=== PATIENT | male | born 1940 | race Caucasian/White ===

== ENCOUNTER → 2018-02-04 | Outpatient (CLI) | payer MEDICARE, SELFPAY ==
[~2018-02-04] MED LIST: ASCO500 PO; Acetaminophen325 M1 PO; Actos45 MG PO; Advair Hfa 230-12 GM; BUSP10 PO; BUSP5 PO; CEFP200 PO; CEFU500T30 PO; CHLO25A PO; CODACE30 PO; CRANBERRY250 MG PO; Cinnamon500 MG PO; Cipro500 MG PO; Colace100 MG PO; DONE10 PO; DONE5 PO; ERGO400 PO; FISH OIL 1,0001 EAC1 PO; FISH OIL 1,0001 EAC2 PO; FLUC150A PO; GABA300 PO; HYDR1TAB94 PO; HYOS.125 SL; Humalog100 UNIT/1 SC; INSDET100 SC; INSULANPEN SC; IRBE150 PO; IRBE75 PO; Keflex500 MG PO; LISI20 PO; LORA.5 PO; LORA1 PO; LOVA20 PO; LOVA40; LOVA40 PO; MAGCHL64ER PO; MELO7.5 PO; MEMA10 PO; MEMA5TAB PO; Novolog Fl100 UNIT/1 SC; OMEPRAZOLE MAGN20 MG PO; Omeprazole20 M1 PO; Percocet 5-3251 EACH PO; QUET25 PO; RISP.5 PO; RISP1 PO; SACC250C PO; TAMS.4ER PO; Zofran Odt4 MG SL
[2018-02-04 18:35] LABS: BASOPHILS ABSOLUTE AUTO 0.03 K/mm3 (0.00-0.23); BASOPHILS PERCENT AUTO 0 % (0-2); EOSINOPHILS ABSOLUTE AUTO 0.12 K/mm3 (0.00-0.68); EOSINOPHILS PERCENT AUTO 2 % (0-6); Hematocrit 40.4 % (37.0-53.0); Hemoglobin 13.4 g/dL (13.5-17.5); IMMATURE GRAN ABSOLUTE AUTO 0.02 K/mm3 (0.00-0.10); IMMATURE GRAN PERCENT AUTO 0 % (0-1); LYMPHOCYTES ABSOLUTE AUTO 2.62 K/mm3 (0.84-5.20); LYMPHOCYTES PERCENT AUTO 35 % (21-46); MONOCYTES ABSOLUTE AUTO 0.46 K/mm3 (0.16-1.47); MONOCYTES PERCENT AUTO 6 % (4-13); Mean Corpuscular HGB 29.8 pg (26.0-34.0); Mean Corpuscular HGB Conc 33.2 g/dL (31.5-36.5); Mean Corpuscular Volume 90 fL (80-100); Mean Platelet Volume 9.6 fL (9.1-12.4); NEUTROPHILS ABSOLUTE AUTO 4.21 K/mm3 (1.96-9.15); NEUTROPHILS PERCENT AUTO 56 % (41-73); Platelet Count 222 K/mm3 (150-400); RDW Coefficient Variation 12.5 % (11.7-14.2); Red Blood Cell Count 4.49 M/mm3 (4.30-5.90); White Blood Cell Count 7.46 K/mm3 (4.00-11.30)
[2018-02-04 18:49] LABS: Alanine Aminotransfer (ALT/SGP 27 U/L (12-78); Albumin, Blood 3.7 g/dL (3.4-5.0); Albumin/Globulin Ratio 1.3 (0.8-1.8); Alk Phos 81 U/L (50-136); Anion Gap 6 mmol/L (6-16); Aspartate Aminotrans (AST/SGOT 16 U/L (12-37); Bilirubin, Total 0.7 mg/dL (0.1-1.0); Blood Urea Nitrogen 14 mg/dL (8-24); CO2, Blood 31 mmol/L (21-32); Calcium, Blood 8.5 mg/dL (8.5-10.1); Chloride, Blood 104 mmol/L (98-108); Creatinine, Blood 0.74 mg/dL (0.60-1.20); Globulin, Blood 2.9 g/dL (2.2-4.0); Glomerular Filtration Rate >60 (60-); Glucose, Blood 354 mg/dL (70-99); Potassium, Blood 4.2 mmol/L (3.5-5.5); Sodium, Blood 141 mmol/L (136-145); Total Protein, Blood 6.6 g/dL (6.4-8.2)
== END | disposition home or self-care (01) ==
LOC: LAB SHORT 17:15 → LAB 17:15
PROVIDERS: Nurse Practitioner
DX: R10.11 Right upper quadrant pain (principal)
CPT/HCPCS: 80053; 83690; 85025

== ENCOUNTER 2018-03-30 15:28 | Emergency (ER) | payer MEDICARE ==
[~2018-03-30] VITALS: Ht 182.9 cm; Wt 90.7 kg
[~2018-03-30 15:28] MED LIST changes: -Acetaminophen325 M1 PO; -Advair Hfa 230-12 GM; -BUSP10 PO; -BUSP5 PO; -CEFP200 PO; -CHLO25A PO; -DONE10 PO; -FISH OIL 1,0001 EAC2 PO; -GABA300 PO; -HYDR1TAB94 PO; -HYOS.125 SL; -Humalog100 UNIT/1 SC; -INSDET100 SC; -IRBE150 PO; -LORA.5 PO; -LORA1 PO; -LOVA40; -MEMA10 PO; -Omeprazole20 M1 PO; -QUET25 PO; -RISP.5 PO; -RISP1 PO; -SACC250C PO
[2018-03-30] MEDS ORDERED: GABA300 PO (16:00)
[2018-03-30] MEDS ORDERED: TAMS.4ER PO (16:00)
[2018-03-30] MEDS ORDERED: Omeprazole20 M1 PO (16:00)
[2018-03-30] MEDS ORDERED: LOVA40 PO (16:01)
[2018-03-30] MEDS ORDERED: MEMA10 (16:01)
[2018-03-30] MEDS ORDERED: DONE10 PO (16:01)
[2018-03-30] MEDS ORDERED: IRBE150 PO (16:01)
[2018-03-30] MEDS ORDERED: MELO7.5 PO (16:02)
[2018-03-30] MEDS ORDERED: BUSP5 PO (16:02)
[2018-03-30] MEDS ORDERED: HYOS.125 SL (16:02)
[2018-03-30] MEDS ORDERED: HYDR1TAB94 PO (16:03)
[2018-03-30] MEDS ORDERED: FISH OIL 1,0001 EAC2 PO (16:03)
[2018-03-30] MEDS ORDERED: CRANBERRY250 MG PO (16:03)
== END 2018-03-30 17:15 | disposition home or self-care (01) ==
LOC: ER 15:28
DX: R10.11 Right upper quadrant pain (principal); Z88.2 Allergy status to sulfonamides; Z88.5 Allergy status to narcotic agent; Z79.899 Other long term (current) drug therapy; Z79.4 Long term (current) use of insulin; E11.9 Type 2 diabetes mellitus without complications; I10 Essential (primary) hypertension; E78.00 Pure hypercholesterolemia, unspecified; G30.9 Alzheimer's disease, unspecified

== ENCOUNTER 2018-04-06 07:15 | Day surgery (SDC) | payer MEDICARE ==
[~2018-04-06] VITALS: Ht 177.8 cm; Wt 91.1 kg
[~2018-04-06 07:15] MED LIST changes: +BUSP5 PO; +DONE10 PO; +FISH OIL 1,0001 EAC2 PO; +GABA300 PO; +HYDR1TAB94 PO; +HYOS.125 SL; +IRBE150 PO; +MEMA10; +Omeprazole20 M1 PO
[2018-04-11] MEDS ORDERED: Omeprazole20 M1 PO (17:18)
== END 2018-04-06 09:29 | disposition home or self-care (01) ==
LOC: ORSCSDS 07:15
PROVIDERS: Internal Medicine Gastroenterology
PROC: 0D758ZZ Dilation of Esophagus, Via Natural or Artificial Opening Endoscopic (ICD-10-PCS; principal; 2018-04-06 08:30)
PROC: 0DB68ZX Excision of Stomach, Via Natural or Artificial Opening Endoscopic, Diagnostic (ICD-10-PCS; principal; 2018-04-06 08:30)
DX: R10.11 Right upper quadrant pain (principal); R13.10 Dysphagia, unspecified; R11.0 Nausea; E78.5 Hyperlipidemia, unspecified; K21.9 Gastro-esophageal reflux disease without esophagitis; Z85.05 Personal history of malignant neoplasm of liver; R63.4 Abnormal weight loss; E11.9 Type 2 diabetes mellitus without complications; I10 Essential (primary) hypertension; Z79.4 Long term (current) use of insulin; K58.9 Irritable bowel syndrome, unspecified; Z79.899 Other long term (current) drug therapy
CPT/HCPCS: 82947; 88305; 88342; J7120

== ENCOUNTER 2018-04-11 14:30 | Inpatient (IN) | payer MEDICARE ==
[~2018-04-11] VITALS: Ht 182.9 cm; Wt 89.6 kg
[~2018-04-11 14:30] MED LIST changes: -IRBE150 PO; -MEMA10; +MEMA10 PO
[2018-04-11 14:56] LABS: Source, Urine Catheter
[2018-04-11 15:16] LABS: Bilirubin, Urine Neg (Neg); Blood, Urine 2+ (Neg); Glucose Qualitative, Urine 4+ (Neg); Ketones, Urine Neg (Neg); Leukocyte Esterase, Urine 3+ (Neg); Nitrite, Urine Pos (Neg); Protein, Urine 2+ (Neg); Urobilinogen, Urine NORM (Normal)
[2018-04-11 15:30] LABS: Appearance, Urine Hazy (Clear); Color, Urine Yellow (P-Yellow)
[2018-04-11 15:31] LABS: BASOPHILS ABSOLUTE AUTO 0.02 K/mm3 (0.00-0.23); BASOPHILS PERCENT AUTO 0 % (0-2); EOSINOPHILS ABSOLUTE AUTO 0.04 K/mm3 (0.00-0.68); EOSINOPHILS PERCENT AUTO 0 % (0-6); Hematocrit 38.1 % (37.0-53.0); Hemoglobin 12.5 g/dL (13.5-17.5); IMMATURE GRAN ABSOLUTE AUTO 0.04 K/mm3 (0.00-0.10); IMMATURE GRAN PERCENT AUTO 0 % (0-1); LYMPHOCYTES ABSOLUTE AUTO 0.69 K/mm3 (0.84-5.20); LYMPHOCYTES PERCENT AUTO 7 % (21-46); MONOCYTES ABSOLUTE AUTO 0.56 K/mm3 (0.16-1.47); MONOCYTES PERCENT AUTO 5 % (4-13); Mean Corpuscular HGB 29.8 pg (26.0-34.0); Mean Corpuscular HGB Conc 32.8 g/dL (31.5-36.5); Mean Corpuscular Volume 91 fL (80-100); Mean Platelet Volume 9.2 fL (9.1-12.4); NEUTROPHILS ABSOLUTE AUTO 9.16 K/mm3 (1.96-9.15); NEUTROPHILS PERCENT AUTO 87 % (41-73); Platelet Count 167 K/mm3 (150-400); RDW Coefficient Variation 12.9 % (11.7-14.2); RDW Standard Deviation 42.5 fL (35.1-46.3); Red Blood Cell Count 4.19 M/mm3 (4.30-5.90); White Blood Cell Count 10.51 K/mm3 (4.00-11.30)
[2018-04-11 15:31] LABS: White Blood Cells, Urine TNTC /hpf (0-5)
[2018-04-11 15:32] LABS: Bacteria Many /hpf; Renal Epithelial Few /hpf (0-Rare); Squamous Epithelial Cells Not Seen /hpf (Few)
[2018-04-11 15:45] LABS: International Normalized Ratio 1.09; Prothrombin Time Results 11.4 Sec (9.7-11.5)
[2018-04-11 15:50] LABS: Alanine Aminotransfer (ALT/SGP 24 U/L (12-78); Albumin, Blood 3.1 g/dL (3.4-5.0); Albumin/Globulin Ratio 1.1 (0.8-1.8); Alk Phos 74 U/L (50-136); Anion Gap 9 mmol/L (6-16); Aspartate Aminotrans (AST/SGOT 21 U/L (12-37); Bilirubin, Total 0.9 mg/dL (0.1-1.0); Blood Urea Nitrogen 17 mg/dL (8-24); Bun/Creatinine Ratio 21.4 (12.0-20.0); CO2, Blood 24 mmol/L (21-32); Chloride, Blood 107 mmol/L (98-108); Creatinine, Blood 0.79 mg/dL (0.60-1.20); Globulin, Blood 2.9 g/dL (2.2-4.0); Glomerular Filtration Rate >60 (60-); Glucose, Blood 328 mg/dL (70-99); Sodium, Blood 140 mmol/L (136-145)
[2018-04-11] MEDS ORDERED: BUSP10 PO (17:17)
[2018-04-11] MEDS ORDERED: LOVA40 (17:21)
[2018-04-11] MEDS ORDERED: LOVA40 PO (17:28)
[2018-04-12 05:32] LABS: BASOPHILS ABSOLUTE AUTO 0.02 K/mm3 (0.00-0.23); BASOPHILS PERCENT AUTO 0 % (0-2); EOSINOPHILS ABSOLUTE AUTO 0.06 K/mm3 (0.00-0.68); EOSINOPHILS PERCENT AUTO 1 % (0-6); Hemoglobin 12.1 g/dL (13.5-17.5); IMMATURE GRAN ABSOLUTE AUTO 0.05 K/mm3 (0.00-0.10); IMMATURE GRAN PERCENT AUTO 0 % (0-1); LYMPHOCYTES ABSOLUTE AUTO 2.54 K/mm3 (0.84-5.20); LYMPHOCYTES PERCENT AUTO 20 % (21-46); MONOCYTES PERCENT AUTO 10 % (4-13); Mean Corpuscular HGB 29.8 pg (26.0-34.0); Mean Corpuscular HGB Conc 32.7 g/dL (31.5-36.5); Mean Corpuscular Volume 91 fL (80-100); Mean Platelet Volume 9.3 fL (9.1-12.4); NEUTROPHILS ABSOLUTE AUTO 8.56 K/mm3 (1.96-9.15); NEUTROPHILS PERCENT AUTO 68 % (41-73); Platelet Count 157 K/mm3 (150-400); RDW Coefficient Variation 12.9 % (11.7-14.2); RDW Standard Deviation 42.9 fL (35.1-46.3); Red Blood Cell Count 4.06 M/mm3 (4.30-5.90); White Blood Cell Count 12.53 K/mm3 (4.00-11.30)
[2018-04-12 05:53] LABS: Anion Gap 7 mmol/L (6-16); Blood Urea Nitrogen 13 mg/dL (8-24); Bun/Creatinine Ratio 16.6 (12.0-20.0); CO2, Blood 26 mmol/L (21-32); Chloride, Blood 109 mmol/L (98-108); Creatinine, Blood 0.79 mg/dL (0.60-1.20); Glomerular Filtration Rate >60 (60-); Glucose, Blood 94 mg/dL (70-99); Potassium, Blood 3.6 mmol/L (3.5-5.5); Sodium, Blood 142 mmol/L (136-145)
[2018-04-13] MEDS ORDERED: Novolog Fl100 UNIT/1 SC (10:15)
[2018-04-13] MEDS ORDERED: INSDET100 SC (10:17)
[2018-04-13] MEDS ORDERED: SACC250C PO (10:19)
[2018-04-13] MEDS ORDERED: CEFP200 PO (10:20)
[2018-04-13] MEDS ORDERED: QUET25 PO (10:22)
[2018-04-15 04:44] LABS: Source, Urine Clean Catch
[2018-04-15 04:48] LABS: Bilirubin, Urine Neg (Neg); Blood, Urine Neg (Neg); Glucose Qualitative, Urine Neg (Neg); Ketones, Urine Neg (Neg); Leukocyte Esterase, Urine 2+ (Neg); Nitrite, Urine Neg (Neg); Protein, Urine 1+ (Neg); Specific Gravity, Urine 1.015 (1.003-1.022); Urobilinogen, Urine NORM (Normal)
[2018-04-15 05:18] LABS: Appearance, Urine Clear (Clear); Color, Urine Yellow (P-Yellow)
[2018-04-15 05:19] LABS: Bacteria Rare /hpf; Red Blood Cells, Urine Not Seen /hpf (0-2); Squamous Epithelial Cells Rare /hpf (Few)
[2018-04-19 05:29] LABS: BASOPHILS ABSOLUTE AUTO 0.03 K/mm3 (0.00-0.23); BASOPHILS PERCENT AUTO 0 % (0-2); EOSINOPHILS ABSOLUTE AUTO 0.28 K/mm3 (0.00-0.68); EOSINOPHILS PERCENT AUTO 4 % (0-6); Hematocrit 36.8 % (37.0-53.0); Hemoglobin 11.8 g/dL (13.5-17.5); IMMATURE GRAN ABSOLUTE AUTO 0.03 K/mm3 (0.00-0.10); IMMATURE GRAN PERCENT AUTO 0 % (0-1); LYMPHOCYTES ABSOLUTE AUTO 2.44 K/mm3 (0.84-5.20); LYMPHOCYTES PERCENT AUTO 30 % (21-46); MONOCYTES ABSOLUTE AUTO 0.59 K/mm3 (0.16-1.47); MONOCYTES PERCENT AUTO 7 % (4-13); Mean Corpuscular HGB 28.6 pg (26.0-34.0); Mean Corpuscular HGB Conc 32.1 g/dL (31.5-36.5); Mean Corpuscular Volume 89 fL (80-100); NEUTROPHILS ABSOLUTE AUTO 4.72 K/mm3 (1.96-9.15); NEUTROPHILS PERCENT AUTO 58 % (41-73); Platelet Count 282 K/mm3 (150-400); RDW Coefficient Variation 12.4 % (11.7-14.2); Red Blood Cell Count 4.13 M/mm3 (4.30-5.90); White Blood Cell Count 8.09 K/mm3 (4.00-11.30)
[2018-04-19 05:50] LABS: Alanine Aminotransfer (ALT/SGP 51 U/L (12-78); Albumin, Blood 3.1 g/dL (3.4-5.0); Albumin/Globulin Ratio 1.1 (0.8-1.8); Alk Phos 93 U/L (50-136); Anion Gap 6 mmol/L (6-16); Aspartate Aminotrans (AST/SGOT 24 U/L (12-37); Bilirubin, Total 0.3 mg/dL (0.1-1.0); Blood Urea Nitrogen 19 mg/dL (8-24); Bun/Creatinine Ratio 22.5 (12.0-20.0); CO2, Blood 28 mmol/L (21-32); Calcium, Blood 8.5 mg/dL (8.5-10.1); Chloride, Blood 109 mmol/L (98-108); Creatinine, Blood 0.84 mg/dL (0.60-1.20); Globulin, Blood 2.9 g/dL (2.2-4.0); Glomerular Filtration Rate >60 (60-); Glucose, Blood 208 mg/dL (70-99); Potassium, Blood 3.5 mmol/L (3.5-5.5); Sodium, Blood 143 mmol/L (136-145)
[2018-04-22] MEDS ORDERED: IRBE150 PO (10:26)
[2018-04-22] MEDS ORDERED: Omeprazole20 M1 PO (10:26)
[2018-04-22] MEDS ORDERED: TAMS.4ER PO (10:27)
[2018-04-22] MEDS ORDERED: Acetaminophen325 M1 PO (10:28)
== END 2018-04-22 13:57 | disposition home or self-care (01) | DRG 872 ==
LOC: DELPENDDIS → ER 14:30 → MEDS 17:15 → ENPENDDIS 04-13 09:00 → MEDS 04-22 13:57
PROVIDERS: Family Medicine; Internal Medicine; Nurse Practitioner Family
DX: A41.9 Sepsis, unspecified organism (principal); N39.0 Urinary tract infection, site not specified; R65.20 Severe sepsis without septic shock; G30.9 Alzheimer's disease, unspecified; F02.80 Dementia in other diseases classified elsewhere, unspecified severity, without behavioral disturbance, psychotic disturbance, mood disturbance, and anxiety; E11.65 Type 2 diabetes mellitus with hyperglycemia; E78.5 Hyperlipidemia, unspecified; I10 Essential (primary) hypertension; Z79.4 Long term (current) use of insulin; Z66 Do not resuscitate; K21.9 Gastro-esophageal reflux disease without esophagitis; M19.90 Unspecified osteoarthritis, unspecified site; B95.2 Enterococcus as the cause of diseases classified elsewhere; Z88.6 Allergy status to analgesic agent; Z88.2 Allergy status to sulfonamides
CPT/HCPCS: 36415; 71046; 80048; 80053; 81001; 82947; 83605; 85025; 85610; 85730; 87040; 87077; 87086; 87186; 93005; 93010; 96365; 99285; J0696; J1630; J1650; J1815; J7030; J7120

== ENCOUNTER → 2018-09-28 | Outpatient (CLI) | payer MEDICARE, OTHER ==
[~2018-09-28] MED LIST changes: +Acetaminophen325 M1 PO; +Advair Hfa 230-12 GM; +BUSP10 PO; +CEFP200 PO; +CHLO25A PO; +Humalog100 UNIT/1 SC; +INSDET100 SC; +IRBE150 PO; +LORA1 PO; +LOVA40; +QUET25 PO; +RISP.5 PO; +RISP1 PO; +SACC250C PO
[2018-09-28 12:01] LABS: Source, Urine Clean Catch
[2018-09-28 12:17] LABS: Bilirubin, Urine Neg (Neg); Blood, Urine Neg (Neg); Glucose Qualitative, Urine Neg (Neg); Ketones, Urine Neg (Neg); Leukocyte Esterase, Urine Neg (Neg); Nitrite, Urine Neg (Neg); Protein, Urine Neg (Neg); Urobilinogen, Urine NORM (Normal); pH, Urine 6.5 (5.0-8.0)
[2018-09-28 12:26] LABS: Appearance, Urine Clear (Clear); Color, Urine Yellow (P-Yellow)
== END | disposition home or self-care (01) ==
LOC: LAB SHORT 11:59 → LAB 11:59
PROVIDERS: Internal Medicine
DX: N39.0 Urinary tract infection, site not specified (principal)
CPT/HCPCS: 81003

== ENCOUNTER → 2018-12-02 | Outpatient (CLI) | payer MEDICARE, OTHER ==
[~2018-12-02] MED LIST changes: +LORA.5 PO
[2018-12-02 12:03] LABS: Source, Urine Voided
[2018-12-02 12:40] LABS: Bilirubin, Urine Neg (Neg); Blood, Urine 4+ (Neg); Glucose Qualitative, Urine Neg (Neg); Ketones, Urine Neg (Neg); Leukocyte Esterase, Urine Neg (Neg); Nitrite, Urine Neg (Neg); Protein, Urine 1+ (Neg); Urobilinogen, Urine NORM (Normal)
[2018-12-02 12:41] LABS: Appearance, Urine Clear (Clear); Color, Urine No Color (P-Yellow)
[2018-12-02 12:45] LABS: Red Blood Cells, Urine Rare /hpf (0-2); Squamous Epithelial Cells Not Seen /hpf (Few); White Blood Cells, Urine Not Seen /hpf (0-5)
[2018-12-02 12:46] LABS: Bacteria Not Seen /hpf
== END | disposition home or self-care (01) ==
LOC: LAB SHORT 10:30 → LAB 10:30
PROVIDERS: Internal Medicine
DX: N39.0 Urinary tract infection, site not specified (principal)
CPT/HCPCS: 81001

== ENCOUNTER 2020-07-23 20:07 | Emergency (ER) | payer OTHER ==
[~2020-07-23] VITALS: Ht 188 cm; Wt 102.1 kg
== END 2020-07-23 23:35 | disposition home or self-care (01) ==
LOC: ER 20:07
DX: S01.302A Unspecified open wound of left ear, initial encounter (principal); I10 Essential (primary) hypertension; E78.00 Pure hypercholesterolemia, unspecified; G30.9 Alzheimer's disease, unspecified; F02.80 Dementia in other diseases classified elsewhere, unspecified severity, without behavioral disturbance, psychotic disturbance, mood disturbance, and anxiety; E11.9 Type 2 diabetes mellitus without complications; K21.9 Gastro-esophageal reflux disease without esophagitis; Z88.2 Allergy status to sulfonamides; Z88.5 Allergy status to narcotic agent; Z79.4 Long term (current) use of insulin; Z79.899 Other long term (current) drug therapy; W01.190A Fall on same level from slipping, tripping and stumbling with subsequent striking against furniture, initial encounter; Y93.01 Activity, walking, marching and hiking
CPT/HCPCS: 36415; 70450; 72125; 96374; 99284-25; J1200

== ENCOUNTER 2020-09-25 00:50 | Emergency (ER) | payer OTHER ==
[~2020-09-25] VITALS: Ht 188 cm; Wt 99.8 kg
[~2020-09-25 00:50] MED LIST changes: +GABA100 PO; -GABA300 PO
[2020-09-25] MEDS ORDERED: FLUT.05NI (01:05)
[2020-09-25] MEDS ORDERED: LOSA50 PO (01:09)
[2020-09-25] MEDS ORDERED: SERT25 PO (01:11)
[2020-09-25] MEDS ORDERED: TRAZ50 PO ×2 (01:12)
== END 2020-09-25 02:34 | disposition home or self-care (01) ==
LOC: ER 00:50
DX: S61.412A Laceration without foreign body of left hand, initial encounter (principal); E11.9 Type 2 diabetes mellitus without complications; I10 Essential (primary) hypertension; E78.00 Pure hypercholesterolemia, unspecified; G30.9 Alzheimer's disease, unspecified; F02.80 Dementia in other diseases classified elsewhere, unspecified severity, without behavioral disturbance, psychotic disturbance, mood disturbance, and anxiety; K21.9 Gastro-esophageal reflux disease without esophagitis; Z88.2 Allergy status to sulfonamides; Z88.5 Allergy status to narcotic agent; Z79.4 Long term (current) use of insulin; Z79.899 Other long term (current) drug therapy; W18.30XA Fall on same level, unspecified, initial encounter
CPT/HCPCS: 99282

== ENCOUNTER 2020-10-04 07:17 | Emergency (ER) | payer OTHER ==
[~2020-10-04] VITALS: Ht 180.3 cm; Wt 83.9 kg
[~2020-10-04 07:17] MED LIST changes: +FLUT.05NI; +LOSA50 PO; +SERT25 PO; +TRAZ50 PO
== END 2020-10-04 09:09 | disposition home or self-care (01) ==
LOC: ER 07:17
DX: M79.601 Pain in right arm (principal); E11.9 Type 2 diabetes mellitus without complications; I10 Essential (primary) hypertension; E78.00 Pure hypercholesterolemia, unspecified; G30.9 Alzheimer's disease, unspecified; F02.80 Dementia in other diseases classified elsewhere, unspecified severity, without behavioral disturbance, psychotic disturbance, mood disturbance, and anxiety; Z88.2 Allergy status to sulfonamides; Z88.5 Allergy status to narcotic agent; Z79.4 Long term (current) use of insulin; Z79.899 Other long term (current) drug therapy; W06.XXXA Fall from bed, initial encounter
CPT/HCPCS: 93005; 93010; 99284-25

== ENCOUNTER 2020-12-19 05:45 | Emergency (ER) | payer OTHER ==
[~2020-12-19] VITALS: Ht 190.5 cm; Wt 88.5 kg
[2020-12-19] MEDS ORDERED: HALOPERIDOL2 MG/1 ML PO (06:25)
== END 2020-12-19 08:43 | disposition home or self-care (01) ==
LOC: ER 05:45
DX: S05.41XA Penetrating wound of orbit with or without foreign body, right eye, initial encounter (principal); G30.9 Alzheimer's disease, unspecified; F02.80 Dementia in other diseases classified elsewhere, unspecified severity, without behavioral disturbance, psychotic disturbance, mood disturbance, and anxiety; E11.9 Type 2 diabetes mellitus without complications; I10 Essential (primary) hypertension; E78.00 Pure hypercholesterolemia, unspecified; Z79.4 Long term (current) use of insulin; Z79.899 Other long term (current) drug therapy; Z88.2 Allergy status to sulfonamides; Z88.5 Allergy status to narcotic agent; W19.XXXA Unspecified fall, initial encounter
CPT/HCPCS: 12001; 99283-25

== ENCOUNTER 2021-05-08 18:50 | Emergency (ER) | payer OTHER ==
[~2021-05-08] VITALS: Ht 188 cm; Wt 95.2 kg
[~2021-05-08 18:50] MED LIST changes: +HALOPERIDOL2 MG/1 ML PO
== END 2021-05-08 21:13 | disposition home or self-care (01) ==
LOC: ER 18:50
DX: Z04.3 Encounter for examination and observation following other accident (principal); F03.90 Unspecified dementia, unspecified severity, without behavioral disturbance, psychotic disturbance, mood disturbance, and anxiety; I10 Essential (primary) hypertension; E11.9 Type 2 diabetes mellitus without complications; E78.00 Pure hypercholesterolemia, unspecified; Z88.2 Allergy status to sulfonamides; Z88.5 Allergy status to narcotic agent; Z79.899 Other long term (current) drug therapy
CPT/HCPCS: 99284